=== PATIENT | male | born 2000 | race Caucasian/White ===

== ENCOUNTER 2021-12-05 02:19 | Emergency (ER) | payer OTHER ==
[~2021-12-05] VITALS: Ht 188 cm; Wt 86.9 kg
[2021-12-05] MEDS ORDERED: EXCETAB33 PO (02:30)
[2021-12-05] MEDS ORDERED: D-ME118L PO (02:30)
[2021-12-05] MEDS ORDERED: IBUP80TA PO (07:29)
[2021-12-05] MEDS ORDERED: ACET-897 PO (07:29)
[2021-12-05] MEDS ORDERED: IBUPROFEN 800 MG TAB PO ONE (07:30)
[2021-12-05 07:43] VITALS: BP 129/71
== END 2021-12-05 07:46 | disposition home or self-care (01) ==
LOC: M ED 02:19
DX: U07.1 COVID-19 (principal)